=== PATIENT | female | born 1990 | race Caucasian/White ===

== ENCOUNTER 2016-10-30 10:41 | Outpatient (CLI) | payer OTHER ==
[~2016-10-30] VITALS: Ht 170.2 cm; Wt 90.9 kg
[2016-10-30 10:45] VITALS: BP 123/77; PULSE 84; TEMP 98.2
[2016-10-30 10:56] VITALS: BP 123/77; PULSE 84; TEMP 98.2
[2016-10-30] MEDS ORDERED: PRENATAL MVI (11:09)
[2016-10-30 11:39] VITALS: PULSE 78
[2016-10-30] MEDS ORDERED: VITAMIN C500 MG PO (11:53)
[2016-10-30] MEDS ORDERED: AMOXICILLIN875 MG PO (12:13)
== END 2016-10-30 11:40 | disposition home or self-care (01) ==
LOC: LDRO 10:41
DX: O99.513 Diseases of the respiratory system complicating pregnancy, third trimester (principal); J02.9 Acute pharyngitis, unspecified; Z3A.34 34 weeks gestation of pregnancy

== ENCOUNTER 2016-10-30 11:46 | Emergency (ER) | payer OTHER ==
[~2016-10-30] VITALS: Ht 170.2 cm; Wt 90.9 kg
[~2016-10-30 11:46] MED LIST: PRENATAL MVI
[2016-10-30 11:50] VITALS: BP 101/56; PULSE 82; TEMP 98.2
[2016-10-30] MEDS ORDERED: VITAMIN C500 MG PO (11:53)
[2016-10-30] MEDS ORDERED: AMOXICILLIN875 MG PO (12:13)
== END 2016-10-30 12:48 | disposition home or self-care (01) ==
LOC: COL.ER 11:46
DX: O99.513 Diseases of the respiratory system complicating pregnancy, third trimester (principal); Z3A.35 35 weeks gestation of pregnancy; J02.9 Acute pharyngitis, unspecified

== ENCOUNTER → 2016-12-19 | Outpatient (CLI) | payer OTHER ==
[~2016-12-19] MED LIST changes: +AMOXICILLIN875 MG PO; +VITAMIN C500 MG PO
== END ==
LOC: COL.RAD 17:28
DX: J98.4 Other disorders of lung (principal); I26.99 Other pulmonary embolism without acute cor pulmonale; R06.02 Shortness of breath
CPT/HCPCS: Q9967